=== PATIENT | female | born 1935 | race Caucasian/White ===

== ENCOUNTER → 2016-10-08 | Outpatient (CLI) | payer MEDICARE, OTHER | END | disposition home or self-care (01) | LOC: CFH 09:57 | PROVIDERS: ATTEND Internal Medicine | DX: Z12.31 Encounter for screening mammogram for malignant neoplasm of breast (principal); Z85.3 Personal history of malignant neoplasm of breast; Z98.890 Other specified postprocedural states; Z92.3 Personal history of irradiation | CPT/HCPCS: G0202 ==

== ENCOUNTER → 2017-10-09 | Outpatient (CLI) | payer MEDICARE, OTHER | END | disposition home or self-care (01) | LOC: CFH 10:06 | PROVIDERS: ATTEND Internal Medicine | DX: Z12.31 Encounter for screening mammogram for malignant neoplasm of breast (principal); M81.0 Age-related osteoporosis without current pathological fracture; N95.9 Unspecified menopausal and perimenopausal disorder; Z85.3 Personal history of malignant neoplasm of breast | CPT/HCPCS: 77080; 77067 ==

== ENCOUNTER → 2019-12-26 | Outpatient (CLI) | payer MEDICARE | END | disposition home or self-care (01) | LOC: CFH 09:29 | PROVIDERS: ATTEND Internal Medicine | DX: Z12.31 Encounter for screening mammogram for malignant neoplasm of breast (principal); Z85.3 Personal history of malignant neoplasm of breast | CPT/HCPCS: 76641; 77063; 77067 ==

== ENCOUNTER 2020-04-04 12:29 | Emergency (ER) | payer MEDICARE ==
[~2020-04-04] VITALS: Ht 154.9 cm; Wt 38.6 kg
--- NOTE | 2020-04-04 12:56 | NUR ---
PT BIB [facility], PT HAD HOME PHYSICAL THERAPY APPT TODAY WITH VS CHECK PT FOUND TO BE SATING 84% RA. EMS THEN CALLED, PT PLACED ON 2L NOW SATING 92%. PT AYSMPTOMATIC TO RA SAT OF 84%. NO DIZZINESS, ORTEGA, CP, SOB PT ASSISTED TO BR, STEADY GAIT NOTED, STILL NO C/O SOB WITH AMBULATION, RA 84%. PLACED BACK ON SUPP O2 PT NOW 93% 2L. PT TO ALL MONITORS. AWAITING ERMD EVAL/ORDERS
--- NOTE | 2020-04-04 13:15 | NUR ---
PT RESTING ON NURY MORAD IN TO UPDATE PT ON POC. ADDITIONAL ORDERS RECIEVED. VSS, JOHN NOTED
[2020-04-04 14:06] LABS: BASOPHILS % (AUTO) 1 % (0-1); EOSINOPHILS % (AUTO) 2 % (1-7); LYMPHOCYTES % (AUTO) 12 % (22-44); MD NO; MEAN CORPUSCULAR HEMOGLOBIN 31.5 pg (27.0-34.8); MEAN CORPUSCULAR HGB CONC 33.5 g/dL (32.4-35.8); MEAN PLATELET VOLUME 8.3 fL (7.4-10.4); MONOCYTES % (AUTO) 13 % (2-9); NEUTROPHILS % (AUTO) 73 % (42-75); PLATELET COUNT 231 x10^3/uL (130-400); RED BLOOD COUNT 4.18 x10^6/uL (3.82-5.3); RED CELL DISTRIBUTION WIDTH 14.4 % (9.6-15.2)
[2020-04-04 14:16] LABS: ALBUMIN 3.1 g/dL (3.4-5.0); CALCIUM 8.7 mg/dL (8.5-10.1); CHLORIDE 109 mmol/L (98-107)
[2020-04-04 14:28] LABS: ALANINE AMINOTRANSFERASE 23 U/L (12-78); ALKALINE PHOSPHATASE 80 U/L (45-117); ANION GAP 5 mmol/L (5-15); BILIRUBIN,TOTAL 1.2 mg/dL (0.2-1.0); CREATININE 0.64 mg/dL (0.55-1.02); TOTAL PROTEIN 6.6 g/dL (6.4-8.2); TROPONIN I < 0.015 ng/mL (0.000-0.045)
--- NOTE | 2020-04-04 16:40 | NUR ---
THROUGHPUT: [facility], ORDER IS NOW IN PROCESS PER RAINA, DELIVERY TAKES ~2HRS FROM TIME PT COPAY IS MADE.
[2020-04-04 18:45] VITALS: BP 106/58
== END 2020-04-04 18:51 | disposition home or self-care (01) ==
LOC: ED 13:40
DX: J44.9 Chronic obstructive pulmonary disease, unspecified (principal); R09.02 Hypoxemia; Z86.39 Personal history of other endocrine, nutritional and metabolic disease
CPT/HCPCS: 36415; 71045; 80053; 84443; 84484; 85025; 93005; 99285

== ENCOUNTER 2020-06-06 11:00 | Day surgery (SDC) | payer MEDICARE ==
[~2020-06-06] VITALS: Ht 157.5 cm; Wt 36.4 kg
[~2020-06-06 11:00] MED LIST: ASPI-963 PO; ATOR40TA78 PO; CLOP75TA PO; FLUT1AER INH; HYDROCHLOROTHIAZIDE; IPRA4AER INH; POTASSIUM
[2020-06-06] MEDS ORDERED: LIDOCAINE 2%, 20ML ONE (11:25)
== END 2020-06-06 13:47 | disposition home or self-care (01) ==
LOC: CACL 11:00
PROVIDERS: ATTEND Internal Medicine Cardiovascular Disease
DX: R55 Syncope and collapse (principal); Z79.899 Other long term (current) drug therapy
CPT/HCPCS: 33285; C1764

== ENCOUNTER 2020-06-13 08:47 | Day surgery (SDC) | payer MEDICARE ==
[~2020-06-13] VITALS: Ht 152.4 cm; Wt 39.0 kg
[2020-06-13] MEDS ORDERED: SODIUM CHLORIDE 0.9% 1,000 ML IV ONE (09:30)
[2020-06-13] MEDS ORDERED: FLUT1AER INH (09:39)
[2020-06-13] MEDS ORDERED: KRIL1CAP31 PO (09:39)
[2020-06-13] MEDS ORDERED: CYAN50TA PO (09:39)
[2020-06-13] MEDS ORDERED: GLUC-149 PO (09:39)
[2020-06-13] MEDS ORDERED: CRAN500T2 PO (09:39)
[2020-06-13] MEDS ORDERED: LEVO50TA64 PO (09:39)
[2020-06-13] MEDS ORDERED: POTA20TA6 PO (09:39)
[2020-06-13] MEDS ORDERED: D MANNOSE PO (09:39)
[2020-06-13] MEDS ORDERED: CA C1TAB60 PO (09:39)
[2020-06-13] MEDS ORDERED: GARL400T12 PO (09:39)
[2020-06-13] MEDS ORDERED: PROPOFOL 10 MG/ML, 20ML ONE (10:26)
== END 2020-06-13 12:50 | disposition home or self-care (01) ==
LOC: CACL 08:47
PROVIDERS: ATTEND Internal Medicine Cardiovascular Disease
DX: I08.3 Combined rheumatic disorders of mitral, aortic and tricuspid valves (principal); Q21.1 Atrial septal defect; I63.9 Cerebral infarction, unspecified; I10 Essential (primary) hypertension; E03.9 Hypothyroidism, unspecified; J44.9 Chronic obstructive pulmonary disease, unspecified; Z20.822 Contact with and (suspected) exposure to COVID-19; Z79.02 Long term (current) use of antithrombotics/antiplatelets; Z79.82 Long term (current) use of aspirin; Z79.899 Other long term (current) drug therapy; Z99.81 Dependence on supplemental oxygen; Z98.890 Other specified postprocedural states
CPT/HCPCS: 87635; 93312; 93321; 93325; J2704

== ENCOUNTER 2020-08-08 11:09 | Emergency (ER) | payer MEDICARE ==
[~2020-08-08] VITALS: Ht 152.4 cm; Wt 19.0 kg
[~2020-08-08 11:09] MED LIST changes: +CA C1TAB60 PO; +CRAN500T3 PO; +CYAN50TA PO; +D MANNOSE PO; +GARL400T12 PO; +GLUC-149 PO; +KRIL1CAP31 PO; +LEVO50TA64 PO; +POTA20TA6 PO
--- NOTE | 2020-08-08 11:24 | NUR ---
ASSUMED CARE OF PT. BIB [facility]-PT HAD MECHANICAL GLF, WAS ON GROUND FOR HOUR UNTIL CAME HOME PT REPORTED FEELING DIZZY WHENEVER SHE TRIED TO GET UP. PT FELL BACKWARD, HIT HER HEAD WHICH IS CURRENTLY WRAPPED W/ KERLEX GAUZE. THE SITE WAS CLOTTED AND MATTED HAIR. SHE REPORTS NO LOC, NO PAIN IN NECK OR SHOULDER, NO HEADACHE DENIES BLURRY VISION. PT ONLY C/O IS CHRONIC SORE. SHE TAKES PLAVIX AND ASA FOR THINNER PER [facility] MED LIST. PT HAS COPD, IS ON 3L NC BASELINE. PT IN GOWN, EKG COMPLETE, PT PLACED ON MONITOR. VSS, NADN. PAIN DENIES PAIN IN HEAD,NECK,SHOULDERS DENIES LOC W/ FALL, NO BLURRY VISION. SIDERAIL UPX2, CALL LIGHT W/IN REACH.
[2020-08-08] MEDS ORDERED: LIDOCAINE-MPF 1%, 5ML INFIL ONE (12:00)
[2020-08-08] MEDS ORDERED: DIPH,PERTUSS(ACELL),TET VAC/PF 0.5 ML IM-VACC ONE ×2 (12:00→12:07)
[2020-08-08] MEDS ORDERED: LIDOCAINE-MPF 1%, 5ML ONE (12:07)
--- NOTE | 2020-08-08 12:27 | NUR ---
PT RETURNED FROM CT, HOOKED ON MONITOR. TDAP ADMINSTERED PER MAY. KARAN, THADDEUS.
--- NOTE | 2020-08-08 12:46 | NUR ---
PT PROVIDED CHAP STICK. IT PROGRAM ENGAGEMENT DIRECTOR PRESENT AND CLEANING SITE PER MD ORDER.
[2020-08-08 13:36] VITALS: BP 129/71
--- NOTE | 2020-08-08 13:37 | NUR ---
Patient given discharge instructions and they have confirmed that they understand the instructions. Patient ambulatory with steady gait. on his way
--- NOTE | 2020-08-08 13:57 | NUR ---
TASK RN: Patient/Caregiver given discharge instructions and they have confirmed that they understand the instructions. Patient ambulatory with steady gait and use of cane. NAD, all questions answered appropriately, denies additional needs at this time. No personal belongings left in room after discharge.
== END 2020-08-08 13:58 | disposition home or self-care (01) ==
LOC: ED 13:40
DX: S00.03XA Contusion of scalp, initial encounter (principal); I10 Essential (primary) hypertension; J44.9 Chronic obstructive pulmonary disease, unspecified; R94.31 Abnormal electrocardiogram [ECG] [EKG]; Z87.891 Personal history of nicotine dependence; W01.0XXA Fall on same level from slipping, tripping and stumbling without subsequent striking against object, initial encounter; Y93.89 Activity, other specified; Y92.009 Unspecified place in unspecified non-institutional (private) residence as the place of occurrence of the external cause; Y99.8 Other external cause status
CPT/HCPCS: 70450; 90471; 90715; 93005

== ENCOUNTER → 2020-09-21 | Outpatient (CLI) | payer MEDICARE | END | disposition home or self-care (01) | LOC: RAD 11:22 | PROVIDERS: ATTEND Physician Assistant | DX: I65.23 Occlusion and stenosis of bilateral carotid arteries (principal); R94.5 Abnormal results of liver function studies; I63.9 Cerebral infarction, unspecified | CPT/HCPCS: 93880 ==